=== PATIENT | female | born 1995 | race African-American/Black ===

== ENCOUNTER 2023-05-30 11:38 | Outpatient (CLI) | payer OTHER ==
[2023-05-30 18:11] LABS: HCT - HEMATOCRIT 35.6 % (37.0-47.0); HGB - HEMOGLOBIN 11.6 g/dL (12.0-16.0); MEAN CORPUSCULAR HEMOGLOBIN 30.2 pg (27.0-31.0); MEAN CORPUSCULAR HGB CONC 32.6 g/dL (32.0-36.0); MEAN CORPUSCULAR VOLUME 92.7 fL (81.0-99.0); MEAN PLATELET VOLUME 9.8 fL (7.9-10.8); RED BLOOD COUNT 3.84 10^6/uL (4.20-5.40); WHITE BLOOD COUNT 7.1 x10^3/uL (4.8-10.8)
== END 2023-05-30 11:39 | disposition home or self-care (01) ==
LOC: LAB.N 11:38
PROVIDERS: ATTEND Nurse Practitioner Obstetrics & Gynecology
DX: Z36.9 Encounter for antenatal screening, unspecified (principal)
CPT/HCPCS: 36415; 82950; 85027

== ENCOUNTER 2023-08-05 04:07 | Inpatient (IN) | payer OTHER ==
[2023-08-05 04:41] LABS: RUPTURE OF MEMBRANES PLUS POSITIVE (NEGATIVE)
[2023-08-05] MEDS ORDERED: NIFEdipine 10 MG CAPSULE PO PRN (04:47)
[2023-08-05] MEDS ORDERED: LABETALOL 20 MG/4 ML SYRINGE IVP PRN ×3 (04:47)
[2023-08-05] MEDS ORDERED: CARBOPROST TROMETHAMINE 250 MCG/ML AMP IM PRN (04:47)
[2023-08-05] MEDS ORDERED: miSOPROStoL 200 MCG TABLET BC PRN (04:47)
[2023-08-05] MEDS ORDERED: SODIUM CHLORIDE FLUSH 0.9% 10 ML SYRINGE IVP PRN ×2 (04:47→19:09)
[2023-08-05] MEDS ORDERED: miSOPROStoL 200 MCG TABLET PR PRN (04:47)
[2023-08-05] MEDS ORDERED: TRANEXAMIC ACID IN NACL 1,000 MG/100 ML BAG IV PRN (04:47)
[2023-08-05] MEDS ORDERED: OXYTOCIN/SODIUM CHLORIDE 500 ML IV PRN ×2 (04:47→19:09)
[2023-08-05] MEDS ORDERED: OXYTOCIN 10 UNIT/ML VIAL IM PRN (04:47)
[2023-08-05] MEDS ORDERED: METHYLERGONOVINE 0.2 MG/ML VIAL IM PRN (04:47)
[2023-08-05] MEDS ORDERED: LACTATED RINGERS 1,000 ML IV PRN (04:47)
[2023-08-05] MEDS ORDERED: hydrALAZINE INJ 20 MG/ML VIAL IVP PRN ×2 (04:47)
[2023-08-05] MEDS ORDERED: TERBUTALINE 1 MG/ML VIAL SUBQ PRN (04:47)
[2023-08-05] MEDS ORDERED: lidocaine 1% 20 ML MDV ID PRN (04:47)
[2023-08-05] MEDS ORDERED: SODIUM CHLORIDE FLUSH 0.9% 10 ML SYRINGE IVP SCH (05:00)
[2023-08-05] MEDS: miSOPROStoL 100 MCG TABLET BC SCH (06:28)
[2023-08-05 06:30] LABS: BASOPHILS % (AUTO) 0.4 %; EOSINOPHILS # (AUTO) 0.1 10^3/uL (0.0-0.7); LYMPHOCYTES # (AUTO) 1.8 10^3/uL (1.5-3.5); LYMPHOCYTES % (AUTO) 22.1 %; MEAN CORPUSCULAR HEMOGLOBIN 29.4 pg (27.0-31.0); MEAN CORPUSCULAR HGB CONC 32.5 g/dL (32.0-36.0); MEAN CORPUSCULAR VOLUME 90.5 fL (81.0-99.0); MEAN PLATELET VOLUME 9.5 fL (7.9-10.8); MONOCYTES # (AUTO) 0.5 10^3/uL (0.0-1.0); MONOCYTES % (AUTO) 6.5 %; NEUTROPHILS # (AUTO) 5.5 10^3/uL (1.5-6.6); NEUTROPHILS % (AUTO) 68.9 %; PLT - PLATELET COUNT 192 10^3/uL (130-450); RED BLOOD COUNT 4.42 10^6/uL (4.20-5.40); RED CELL DISTRIBUTION WIDTH 13.9 % (12.0-15.0)
--- NOTE | 2023-08-05 10:57 | HISTORY & PHYSICAL EXAMINATION ---
Admit History - Visit Reason Visit Reason: Membranes rupture - : 1 Parity: 0 Premature: 0 Ectopic: 0 : 0 Care: positive: [facility] Risk/History: positive: None Complications This : positive: None Smoking Status: Never smoker - Mother's Labs Mother's Blood Type: positive: O Mother's RH: positive: Positive GBS: positive: Other Rubella Status: positive: Immune - HPI Diagnosis/Indication for NST: Other Current EDU 09/01/23 Gestation 36 Weeks and 1 Days 1 Vital Signs Temperature 98.7 C H 08/05/23 04:42 Temperature 36.1 C L 08/05/23 05:08 Heart Rate 77 08/05/23 05:08 Respiratory Rate 24 08/05/23 05:08 Blood Pressure 122/77 08/05/23 05:08 O2 Saturation If not protocol: Oxygen Flow, liters/minute - NST Procedure FHR baseline 140s, + accels, no decels Contractions palpate mild every 2-4 minutes with soft resting tone Meds/Allgy - Allergies Allergies/Adverse Reactions: Allergies Allergy/AdvReac Type Severity Reaction Status Date / Time Latex, Natural Rubber AdvReac Itching Verified 08/05/23 05:02 Review of Systems - Constitutional Constitutional: denies: Fatigue, Fever, Chills, Malaise - Eyes Eyes: denies: Blurred vision, Spots in vision, Dipolpia - Cardiovascular Cariovascular: denies: Irregular heart rate, Palpitations, Chest pain, Edema - Respiratory Respiratory: denies: Cough, Wheezing, SOB at rest - Gastrointestinal Gastrointestinal: denies: Abdominal pain, Constipation, Diarrhea, Nausea, Vomiting - Genitourinary Genitourinary: denies: Dysuria, Frequency - Integumentary Integumentary: denies: Rash, Pruritis - Neurological Neurological: denies: Headache - Psychiatric Psychiatric: denies: Depression, Anxiety - Hematologic/Lymphatic Hematologic/Lymphatic: denies: Anemia - All Other Systems All Other Systems: reports: Reviewed and negative Physical - Abdominal Exam Vital Signs: Temp Pulse Resp BP Pulse Ox O2 Flow Rate 36.1 C L 77 24 122/77 08/05/23 05:08 08/05/23 05:08 08/05/23 05:08 02/25/24 05:08 Contraction Frequency (min/apart): 2-4 Contraction Intensity: positive: Mild Uterine Resting Tone: positive: Soft - Monitoring Heart Rate Baseline: 140 Strip Review: positive: Category I - Presentation Presentation: positive: Vertex - Vaginal Exam Membranes: positive: Membranes ruptured Dilation (in cm): 1 Effacement (%): 20 Station: positive: -3 Cervical Position: positive: Posterior - Speculum Exam Speculum Exam Performed: positive: No Findings: positive: Gross leak, Other Plan for Labor - Plan For Labor I expect patient to be DC'd or transferred within 96 hours.: Yes Plan for Labor: Kelly is a 28yo @ 36.1wks gestation by 9.3wk U/S who presents to [facility] with c/o vaginal leakage of clear fluid that started at 0200 this morning. She denies vaginal bleeding and reports +FM. Upon arrival a ROM+ was collected and returned positive. She has continued to leak clear fluid. Her GBS status is unknown at this time and a stat swab was collected. She will be treated per ACOG recommendations for GBS unknown until swab returns negative. She has been a patient of [facility] since her transfer of care from [place], [place] at 23wks gestation. She has had an uncomplicated and has received consistent care for the duration of her . She will be admitted to [facility] for induction of labor secondary to PPROM. She is supported by her Chris today. 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 SAB x0. Las pap 07/2020 WNL, no hx abnormal. Denies history of gonorrhea, chlamydia, genital herpes, oral herpes or any other STI. Sexual partner does NOT have HSV (oral or genital). Medical Hx: none Surgical Hx: wisdom teeth at age 20 Social Hx: Monogamous with male partner Stopped drinking alcohol due to . Denies current use of tobacco, marijuana or other recreational drugs. Reports that she is safe in current relationship. Family Hx: Diabetes - PGM; Cancer- PGF, MGF. Denies family history of congenital anomalies, Cystic Fibrosis or chromosomal abnormalities. Allergies: NKDA; Latex allergy Medications: PNV course: O positive, antibody negative Rubella immune, varicella - unknown Hep b non-reactive, hep c non-reactive HIV non-reactive, RPR non-reactive Initial U/S @ 9.3wks dates Genetic screening - negative FAS WNL. Posterior placenta, no previa. Size c/w dating (EFW 53%tile). 3VC. Glucola 127 GBS unkown Physical exam: Normocephalic, atraumatic Heart RRR w/o M/G/R Lungs CTAB Abdomen gravid, soft, nontender EFW 3000g FHR baseline 140s, moderate variability, + accels, no decels Contractions palpate mild every 2-4 minutes with soft resting tone SVE 20/-3, posterior. Vertex. Grossly ruptured membranes. ROM+ POSITIVE Bilateral LE's no edema Mood is good Assessment: 28yo @ 36.1wks gestation by 9.3wk U/S PPROM FHR Category I GBS unknown Plan: Admit to [facility] for cervical ripening. 50mcg BC misoprostol q 4 hrs for cervical ripening. Continuous monitoring. Initiate Ampicillin for GBS prophylaxis per protocol. Jacuzzi PRN. Nitrous oxide PRN. Epidural per pt request. Anticipate .
[2023-08-05] MEDS: fentaNYL 100 MCG/2 ML VIAL IVP PRN (13:37)
[2023-08-05] MEDS: LACTATED RINGERS 500 ML IV ONE (14:10)
[2023-08-05] MEDS ORDERED: ROPIVACAINE 0.2% 200 MG/100 ML BAG EP ONE (14:20)
[2023-08-05] MEDS: AMPICILLIN 2 GM in SODIUM CHLORIDE 0.9% MINIBAG 100 ML IV ONE (14:49)
[2023-08-05] MEDS ORDERED: NALBUPHINE 10 MG/ML AMP IVP PRN ×2 (14:51→15:50)
[2023-08-05] MEDS ORDERED: ROPIVACAINE 0.2% 200 MG/100 ML BAG EP PRN (14:51)
[2023-08-05] MEDS ORDERED: ePHEDrine 50 MG/ML VIAL IVP PRN ×3 (14:51→15:50)
[2023-08-05] MEDS ORDERED: METOCLOPRAMIDE 10 MG/2 ML VIAL IVP PRN ×3 (14:51→15:50)
[2023-08-05] MEDS ORDERED: ONDANSETRON 4 MG/2 ML VIAL IVP PRN ×3 (14:51→15:50)
[2023-08-05] MEDS ORDERED: diphenhydrAMINE INJ 50 MG/ML VIAL IVP PRN ×2 (14:51→15:50)
[2023-08-05] MEDS ORDERED: NALOXONE 0.4 MG/ML VIAL IVP PRN ×3 (14:51→15:50)
--- NOTE | 2023-08-05 14:56 | ANESTHESIA ---
Pre-Anesthesia VS, & Labs - Diagnosis term labor,IUP - Procedure epidural for Vital Signs: Temp Pulse Resp BP Pulse Ox O2 Flow Rate 36.1 C L 77 24 122/77 08/05/23 05:08 08/05/23 05:08 08/05/23 05:08 08/05/23 05:08 Height: 5 ft 3 in Weight (kg): 73.028 kg Body Mass Index: 28.5 BMI Classification: Overweight - NPO Last Fluid Intake: t/o morning,fluids - Is Patient ?: Yes - Lab Results Current Lab Results: Laboratory Tests 08/05/23 09:00: Blood Type Recheck O POSITIVE 08/05/23 06:21: WBC 8.0, RBC 4.42, Hgb 13.0, Hct 40.0, MCV 90.5, MCH 29.4, MCHC 32.5, RDW 13.9, Plt Count 192, MPV 9.5, Neut # (Auto) 5.5, Lymph # (Auto) 1.8, [place] # (Auto) 0.5, Eos # (Auto) 0.1, Baso # (Auto) 0.0, Absolute Nucleated RBC 0.00, Nucleated RBC % 0.0 08/05/23 06:21: Blood Type O POSITIVE, Antibody Screen NEGATIVE Lab results reviewed: Yes Fish Bones: 08/05/23 06:21 Home Medications and Allergies Active Medications Carboprost Tromethamine (Carboprost Tromethamine 250 Mcg/Ml Amp) 250 mcg IM .ONCE PRN PRN Reason: Hemorrhage Diphenhydramine HCl (Diphenhydramine Inj 50 Mg/Ml Vial) 12.5 - 25 mg IVP Q6HR PRN PRN Reason: ITCHING Ephedrine Sulfate (Ephedrine 50 Mg/Ml Vial) 5 mg IVP Q5M PRN PRN Reason: For SBP<100;give until SBP>100 Fentanyl (Fentanyl 100 Mcg/2 Ml Vial) 50 mcg IVP Q1H PRN PRN Reason: Severe Pain (score 7-10) Last Admin: 08/05/23 13:37 Dose: 50 mcg Hydralazine HCl (Hydralazine Inj 20 Mg/Ml Vial) 5 - 10 mg IVP Q20M PRN; Protocol PRN Reason: SBP> or= 160 OR DBP> or= 110 Hydralazine HCl (Hydralazine Inj 20 Mg/Ml Vial) 10 mg IVP .ONCE PRN; Protocol PRN Reason: SBP> or= 160 OR DBP> or= 110 Lactated Ringer's (Lr) 500 mls @ 999 mls/hr IV PRN PRN PRN Reason: NEEDED PER PROVIDER ORDERS Oxytocin/Sodium Chloride (Pitocin/Sodium Chloride) 500 mls @ 999 mls/hr IV PRN PRN; Protocol PRN Reason: POST- HEMORR PREVENTION Tranexamic Acid (Tranexamic 1,000 Mg/100ml-Nacl) 1,000 mg in 100 mls @ 600 mls/hr IV Q30M PRN PRN Reason: EBL >1200mL and within 3hr Ampicillin Sodium 2 gm/ Sodium (Chloride) 100 mls @ 100 mls/hr IV ONCE ONE Stop: 08/05/23 15:36 Last Admin: 08/05/23 14:49 Dose: 100 mls/hr Ampicillin Sodium 1 gm/ Sodium (Chloride) 100 mls @ 200 mls/hr IV Q4H PETE Lactated Ringer's (Lr) 500 mls @ 999 mls/hr IV ONCE ONE Stop: 08/05/23 15:21 Ropivacaine (Naropin 0.2%) 200 mg in 100 mls @ 0 mls/hr EP PRN PRN; Protocol PRN Reason: PAIN Labetalol HCl (Labetalol 20 Mg/4 Ml Syringe) 20 - 80 mg IVP Q10M PRN; Protocol PRN Reason: SBP> or= 160 OR DBP> or= 110 Labetalol HCl (Labetalol 20 Mg/4 Ml Syringe) 20 mg IVP .ONCE PRN; Protocol PRN Reason: SBP> or= 160 OR DBP> or= 110 Labetalol HCl (Labetalol 20 Mg/4 Ml Syringe) 20 - 40 mg IVP Q10M PRN; Protocol PRN Reason: SBP> or= 160 OR DBP> or= 110 Lidocaine HCl (Lidocaine 1% 20 Ml Mdv) 20 ml ID .ONCE PRN PRN Reason: PERINEAL REPAIR Stop: 08/08/23 04:47 Methylergonovine Maleate (Methylergonovine 0.2 Mg/Ml Vial) 0.2 mg IM .ONCE PRN PRN Reason: Hemorrhage Metoclopramide HCl (Metoclopramide 10 Mg/2 Ml Vial) 10 mg IVP Q6HR PRN PRN Reason: Nausea / Vomiting Misoprostol (Misoprostol 200 Mcg Tablet) 600 mcg BC .ONCE PRN PRN Reason: Hemorrhage Misoprostol (Misoprostol 200 Mcg Tablet) 800 mcg UT .ONCE PRN PRN Reason: Hemorrhage Misoprostol (Misoprostol 100 Mcg Tablet) 50 mcg BC Q4H PETE Last Admin: 08/05/23 10:35 Dose: 50 mcg Nalbuphine HCl (Nalbuphine 10 Mg/Ml Amp) 2.5 - 5 mg IVP Q4H PRN PRN Reason: ITCHING Naloxone HCl (Naloxone 0.4 Mg/Ml Vial) 0.1 mg IVP Q2M PRN PRN Reason: RR<8 Nifedipine (Nifedipine 10 Mg Capsule) 10 - 20 mg PO Q20M PRN; Protocol PRN Reason: SBP> or= 160 OR DBP> or= 110 Ondansetron HCl (Ondansetron 4 Mg/2 Ml Vial) 4 mg IVP Q6HR PRN PRN Reason: Nausea / Vomiting Oxytocin (Oxytocin 10 Unit/Ml Vial) 10 unit IM .ONCE PRN PRN Reason: Step One if no IV access. Sodium Chloride (Sodium Chloride Flush 0.9% 10 Ml Syringe) 10 ml IVP PRN PRN PRN Reason: NEEDED PER PROVIDER ORDERS Sodium Chloride (Sodium Chloride Flush 0.9% 10 Ml Syringe) 10 ml IVP Q8H PETE Terbutaline Sulfate (Terbutaline 1 Mg/Ml Vial) 0.25 mg SUBQ .ONCE PRN PRN Reason: Tachystole Allergies/Adverse Reactions: Allergies Allergy/AdvReac Type Severity Reaction Status Date / Time Latex, Natural Rubber AdvReac Itching Verified 08/05/23 05:02 Anes History & Medical History - Anesthetic History Anesthesia Complications: reports: No previous complications Family history of Anesthesia Complications: Denies Family history of Malignant Hyperthermia: Denies - Medical History Smoking Status: Never smoker - Surgical History Other Past Surgical History: wisdom teeth extraction - Obstetrical History : 1 Parity: 0 Events: reports: None Complications: reports: None Exam General: Alert Dental: WNL Neck Mobility: Normal Respiratory: No respiratory distress Cardiovascular: Regular rate Neurological: Normal speech Mental/Cognitive Status: Alert/Oriented X3, Normal for patient Cognitive Status: Within normal limits Plan Anesthesia Type: Epidural Consent for Procedure(s) Verified and Reviewed: Yes Code Status: Attempt Resuscitation ASA classification: 2-Mild systemic disease Is this case an emergency?: No
[2023-08-05] MEDS ORDERED: ceFAZolin 2 GM VIAL ONE (15:09)
[2023-08-05] MEDS ORDERED: fentaNYL 100 MCG/2 ML VIAL ONE (15:09)
[2023-08-05] MEDS ORDERED: SODIUM CHLORIDE 0.9% 10 ML VIAL IVP ONE ×2 (15:12→15:21)
[2023-08-05] MEDS ORDERED: MORPHINE PF 5 MG/10 ML VIAL ONE (15:12)
[2023-08-05] MEDS ORDERED: OXYTOCIN 10 UNIT/ML VIAL ONE (15:12)
[2023-08-05] MEDS ORDERED: OXYTOCIN/SODIUM CHLORIDE 500 ML IV ONE (15:17)
[2023-08-05] MEDS ORDERED: ePHEDrine 50 MG/ML VIAL IVP ONE (15:20)
[2023-08-05] MEDS ORDERED: PHENYLEPHRINE HCL 0.5 MG/5 ML AMPULE ONE (15:21)
[2023-08-05] MEDS ORDERED: fentaNYL 100 MCG/2 ML VIAL IT ONE (15:27)
[2023-08-05] MEDS ORDERED: MORPHINE PF 5 MG/10 ML VIAL IT ONE (15:27)
[2023-08-05] MEDS ORDERED: HYDROmorphone 0.5 MG/0.5 ML SYRINGE IVP PRN (15:50)
[2023-08-05] MEDS ORDERED: MORPHINE 2 MG/ML CARPUJECT IVP PRN (15:50)
[2023-08-05] MEDS ORDERED: ATROPINE ABBOJECT 1 MG/10 ML SYRINGE IVP PRN (15:50)
[2023-08-05] MEDS ORDERED: fentaNYL 100 MCG/2 ML VIAL IVP PRN (15:50)
[2023-08-05] MEDS ORDERED: KETOROLAC 30 MG/ML VIAL ONE (15:53)
[2023-08-05] MEDS ORDERED: LACTATED RINGERS 1,000 ML IV SCH ×2 (16:00→20:00)
--- NOTE | 2023-08-05 17:10 | OPERATIVE REPORT ---
Operative Report - General Admit Date: 08/05/23 Procedure Date: 08/05/23 Planned Procedure: Low transverse section Pre-Op Diagnosis: malpresentation Procedure Performed: Low transverse section Post Op Diagnosis: malpresentation - Procedure Note Primary Surgeon: Edison Miramontes Secondary Surgeon: KAILEY Terrazas Anesthesia Provider: John Vasquez CRNA Pathology: None IV Fluids (mL): 1,200 Estimated Blood Loss (mL): 600 Urine Output (mL): 300 Complications: None - Other Other Information/Narrative: Pre-Op diagnoses: 36 weeks gestation Prelabor rupture membranes presentation Postop diagnosis Same Delivery of live veras Status post spontaneous vaginal delivery section was recommended. Risks, benefits and alternatives were discussed including but not limited to infection, bleeding that may require blood products or hysterectomy for life saving measures, injury to surrounding organs including but not limited to bowel, bladder, ureters, tubes and ovaries and/or the baby. Should injury occur it could require longer/additional surgery to repair. The patient stated understanding and desired to proceed. All questions were answered posed by patient. Prior to being taken to the OR, 2 grams of cefazolin IV preoperatively and 500 mg azithromycin was given preoperatively perioperatively administered. The patient was taken to the operating room where regional anesthesia was found to be adequate. She was then prepared and draped in the usual sterile fashion in t he dorsal supine position with a leftward tilt displacing the uterus. Kunz was draining to gravity. SCDs were on bilateral lower extremities. Vaginal prep was prepared with iodine. A pfannenstiel skin incision was then made with the scalpel and carried through to the underlying layer of fascia. The fascia was incised in the midline and the incision extended laterally with the Ta scissors. The superior aspect of the facial incision was then grasped with the Charis clamps, elevated and the underlying rectus muscles dissected off sharply. Attention was then turned to the inferior aspect of this incision which in a similar fashion was grasped, elevated with the Charis clamps and the rectus muscle dissected off sharply. The rectus muscles were in the midline. The peritoneum identified, grasped with the pick-ups and entered sharply with the Metzenbaum scissors. The peritoneal incision was then extended superiorly and inferiorly with good visualization of the bladder. The bladder blade was inserted. The vesicouterine peritoneum was identified, grasped with the pick-ups, and entered sharply with Metzenbaum scissors. This incision was then extended laterally and the bladder flap created digitally. The bladder blade was reinserted. The lower uterine segment was identified and incised in a transverse fashion with the scalpel. The uterine incision was then extended bluntly laterally.The bladder blade was removed. The fetus was in breech presentation. The buttocks were easily removed from the pelvis. After delivery of the buttocks, the legs were fully extended toward the head and delivered quickly without assistance. The left, anterior shoulder was then medially rot flexed, and extended through the hysterotomy. Ated, fetus was then rotated with right shou lder anterior and the similar procedure was done. At that point the head delivered spontaneously. The infants mouth and nose were bulb suctioned, stimulated and warmed with a blanket. After delayed cord clamping, the umbilical cord was clamped times two and cut. The infant was handed to the pediatric team. The placenta was removed with gentle traction. Oxytocin was added to the IV fluid and was allowed to run freely. The uterus was exteriorized and cleared of all clots and debris. The uterine incision was inspected and found to be without any extensions and was repaired with 0 Vicryl in a running, locked fashion. A second imbricating layer was performed. 2 additional [id number] stitches were used to achieve hemostasis. Upon inspection, the repaired hysterotomy was found to be hemostatic. The uterus was firm and returned to the abdomen. The gutters were cleared of all clots and debris. The peritoneum was closed with a running suture of 2-0 Vicryl. The muscle layer was examined and found to be hemostatic. The fascia was reapproximated with 0 Vicryl in a running fashion. The skin was closed in a subcuticular fashion with 4-0 Monocryl. The patient tolerated the procedure well. Sponge, lap and needle counts were correct times three. The patient was taken to the recovery room in stable condition. I appreciate the assistance of Sandra Seo during this procedure, and the assistance in retraction, visualization, dissection, and overall assistance during the case were instrumental to the patient's wellbeing. APGARs: 8/9 weight: Pending
[2023-08-05] MEDS: AZITHROMYCIN INJ 500 MG in SODIUM CHLORIDE 0.9% 250 ML IV ONE (18:04)
[2023-08-05] MEDS: ceFAZolin (2G) 2 GM in SODIUM CHLORIDE 0.9% MINIBAG 100 ML IV ONE (18:04)
[2023-08-05] MEDS ORDERED: ONDANSETRON ODT 4 MG TABLET TL PRN (19:09)
--- NOTE | 2023-08-05 19:14 | ANESTHESIA POST OP EVALUATION ---
Anesthesia Post Eval - Post Anesthesia Eval Vitals: Last Vital Signs Temp 36.7 C 08/05/23 18:00 Pulse 81 08/05/23 18:30 Resp 14 08/05/23 18:30 BP 112/61 08/05/23 18:30 Pulse Ox O2 Flow Rate CV Function Including HR & BP: Stable Pain Control: Satisfactory Nausea & Vomiting: Negative Mental Status: Baseline Respiratory Status: Airway Patent Hydration Status: Satisfactory Anesthesia Complications: None
[2023-08-05] MEDS: AMPICILLIN 1 GM in SODIUM CHLORIDE 0.9% MINIBAG 100 ML IV SCH (19:40)
[2023-08-05] MEDS: KETOROLAC 30 MG/ML VIAL IVP SCH (22:46)
[2023-08-05] MEDS: ACETAMINOPHEN 500 MG TABLET PO SCH (22:47)
[2023-08-06] MEDS ORDERED: SODIUM CHLORIDE FLUSH 0.9% 10 ML SYRINGE IVP SCH (01:00)
[2023-08-06 06:33] LABS: BASOPHILS % (AUTO) 0.3 %; EOSINOPHILS # (AUTO) 0.1 10^3/uL (0.0-0.7); EOSINOPHILS % (AUTO) 0.6 %; HCT - HEMATOCRIT 34.3 % (37.0-47.0); HGB - HEMOGLOBIN 11.3 g/dL (12.0-16.0); LYMPHOCYTES # (AUTO) 1.7 10^3/uL (1.5-3.5); LYMPHOCYTES % (AUTO) 13.8 %; MEAN CORPUSCULAR HEMOGLOBIN 30.3 pg (27.0-31.0); MEAN CORPUSCULAR HGB CONC 32.9 g/dL (32.0-36.0); MEAN PLATELET VOLUME 9.2 fL (7.9-10.8); MONOCYTES # (AUTO) 0.7 10^3/uL (0.0-1.0); NEUTROPHILS # (AUTO) 9.6 10^3/uL (1.5-6.6); NEUTROPHILS % (AUTO) 78.6 %; PLT - PLATELET COUNT 158 10^3/uL (130-450); RED BLOOD COUNT 3.73 10^6/uL (4.20-5.40); RED CELL DISTRIBUTION WIDTH 14.1 % (12.0-15.0); WHITE BLOOD COUNT 12.2 x10^3/uL (4.8-10.8)
--- NOTE | 2023-08-06 07:03 | PROVIDER PROGRESS NOTE ---
Subjective - Subjective Subjective: Subjective Patient reports she is doing well. Lochia appropriate. Denies heavy bleeding. Ambulating without difficulty. Pelvic and abdominal pain well-controlled. Tolerating oral intake. Diet: Regular. Catheter removed, has not voided. Passing flatus. Denies BM. Patient is bonding with baby in room Breast feeding going well. Denies feeling lightheaded, dizzy or excessively fatigued. Objective General: Alert, oriented, no apparent distress. Cardiovascular: Regular rate. Regular rhythm. Lungs: No increased work of breathing. Abdomen: Uterus firm. Below umbilicus. No guarding or rebound. Extremities: No pain on palpation. No cords palpated. Distal pulses intact. Incision: Bandage in place. Assessment and Plan day 1. -Routine care -Anticipate discharge in 1 to 2 days Status post primary low-transverse section -Monitor for signs of endometritis. GBS positive, inadequate treatment. -Received cefazolin and azithromycin as well as vaginal prep for surgery. Objective - Vital Signs/Intake & Output Intake & Output: Intake & Output 08/03/23 08/04/23 08/05/23 08/06/23 23:59 23:59 23:59 23:59 Intake Total 2049 1750 Output Total 2100 Balance 2050 -350 - Lab Results Fish Bones: 08/06/23 06:30 Other Labs: Lab Results x24hrs 08/06/23 08/05/23 08/05/23 Range/Units 06:30 09:00 06:21 WBC 12.2 H (4.8-10.8) x10^3/uL RBC 3.73 L (4.20-5.40) 10^6/uL Hgb 11.3 L (12.0-16.0) g/dL Hct 34.3 L (37.0-47.0) % MCV 92.0 (81.0-99.0) fL MCH 30.3 (27.0-31.0) pg MCHC 32.9 (32.0-36.0) g/dL RDW 14.1 (12.0-15.0) % Plt Count 158 (130-450) 10^3/uL MPV 9.2 (7.9-10.8) fL Neut # (Auto) 9.6 H (1.5-6.6) 10^3/uL Lymph # (Auto) 1.7 (1.5-3.5) 10^3/uL [place] # (Auto) 0.7 (0.0-1.0) 10^3/uL Eos # (Auto) 0.1 (0.0-0.7) 10^3/uL Baso # (Auto) 0.0 (0.0-0.1) 10^3/uL Absolute Nucleated RBC 0.00 x10^3/uL Nucleated RBC % 0.0 /100WBC Group B Strep (PCR) (NEGATIVE) Blood Type O POSITIVE Blood Type Recheck O POSITIVE Antibody Screen NEGATIVE 08/05/23 Range/Units 04:30 WBC (4.8-10.8) x10^3/uL RBC (4.20-5.40) 10^6/uL Hgb (12.0-16.0) g/dL Hct (37.0-47.0) % MCV (81.0-99.0) fL MCH (27.0-31.0) pg MCHC (32.0-36.0) g/dL RDW (12.0-15.0) % Plt Count (130-450) 10^3/uL MPV (7.9-10.8) fL Neut # (Auto) (1.5-6.6) 10^3/uL Lymph # (Auto) (1.5-3.5) 10^3/uL [place] # (Auto) (0.0-1.0) 10^3/uL Eos # (Auto) (0.0-0.7) 10^3/uL Baso # (Auto) (0.0-0.1) 10^3/uL Absolute Nucleated RBC x10^3/uL Nucleated RBC % /100WBC Group B Strep (PCR) NEGATIVE (NEGATIVE) Blood Type Blood Type Recheck Antibody Screen
[2023-08-06] MEDS: SIMETHICONE CHEW 80 MG TABLET PO PRN (08:28)
[2023-08-06] MEDS: DOCUSATE SODIUM 100 MG CAPSULE PO SCH (08:28)
[2023-08-06] MEDS: oxyCODONE 5 MG TABLET PO PRN (08:29)
--- NOTE | 2023-08-06 10:46 | PROVIDER PROGRESS NOTE ---
Labor Progress Note - Uterine Monitoring Uterine Monitoring Mode: positive: External toco Contraction Frequency (min/apart): 2-4 Contraction Intensity: positive: Strong Uterine Resting Tone: positive: Soft - Monitoring Monitor Mode: positive: External ultrasound Heart Rate Baseline: 140 Heart Rate Variability: positive: Moderate (6-25 bmp) Accelerations: positive: Present, 15x15 Decelerations: positive: None Strip Review: positive: Category I - Vaginal Exam Dilation (in cm): 8 Effacement (%): 100 Station: 0 - Labor Progress Note Labor Progress Note/Additional Text: S: Patient crying and breathing through contractions in hands and knees position. She requests an epidural for pain management. She has used nitrous oxide with improved her pain and fentanyl which did not improve her pain. She is feeling spontaneous urge to push with contractions and states she is not able to avoid pushing as her body is doing it spontaneously. I was called to the bedside to evaluate the patient for rapid cervical dilation. SVE 8/100/0 with unsure presentation and atypical examination with concern for breech presentation vs face presentation. A bedside ultrasound was requested. No head noted in uterine fundus and secondary to patient level of pain and request for epidural placement the ultrasound was discontinued so epidural could be placed. on call pharmacy technician physician notified and requested to present secondary to concern for abnormal presentation. Epidural was promptly placed and physician present at the bedside and diagnosed breech presentation. Care was handed to firebrick layer for primary delivery secondary to breech presentation. (See physician documentation.)
--- NOTE | 2023-08-06 10:48 | PROCEDURE REPORT ---
Hospitalist Procedure Note - Procedure Note Procedure Note: VARNISH THINNER DOCUMENTATION: I assisted the OB consumer services advisor in the section for this patient. My responsibilities included retracting and suctions, providing fundal pressure during delivery and following with suture during closure. Please see the OB's note for details of the surgery
[2023-08-06] MEDS: IBUPROFEN 600 MG TABLET PO SCH (19:31)
--- NOTE | 2023-08-07 09:39 | Discharge Plan ---
Discharge Plan Problem Reviewed?: Yes Disposition: Home, Self Care Condition: Good Shower Restrictions: No Driving Restrictions: Yes Instruction Topics: Depression , C Section Dc No Smoking: If you smoke, Please STOP! Call for help. Follow-up with: Edison Miramontes MD [Provider Admit Priv/Credential] -
--- NOTE | 2023-08-07 09:43 | DISCHARGE SUMMARY ---
Discharge Summary Admit Date: 08/05/23 Discharge Date: 08/07/23 Discharging Provider: Edison Miramontes MD Condition at Discharge: Good Discharge Disposition: 01 Home, Self Care - DIAGNOSES Admission Diagnoses: 36 weeks gestation rupture membranes labor GBS positive Discharge Diagnoses with Status of Each Condition: Same Breech presentation Status post primary low-transverse section - HPI History of Present Illness: Subjective Patient reports she is doing well. Lochia appropriate. Denies heavy bleeding. Ambulating. Pelvic and abdominal pain well-controlled. Tolerating oral intake. Diet: Regular. Voiding without difficulty. Passing flatus. Denies BM. Patient is bonding with baby in room Breast feeding going well. Denies feeling lightheaded, dizzy or excessively fatigued. Objective General: Alert, oriented, no apparent distress. Cardiovascular: Regular rate. Regular rhythm. Lungs: No increased work of breathing. Abdomen: Uterus firm. Below umbilicus. No guarding or rebound. Extremities: No pain on palpation. No cords palpated. Distal pulses intact. Incision: Clean, dry, and intact. - HOSPITAL COURSE Hospital Course: Patient presented at 36 weeks gestation with rupture of membranes. I was called by her string top sealer who was concerned about malpresentation. I arrived, performed an ultrasound and checked and baby was in breech presen tation, so section was recommended. was unremarkable and delivery of a healthy female was done. course was unremarkable and she and her were discharged on day 2. weight: 5 pounds 10 ounces - ALLERGIES Allergies/Adverse Reactions: Allergies Allergy/AdvReac Type Severity Reaction Status Date / Time Latex, Natural Rubber AdvReac Itching Verified 08/05/23 05:02 - MEDICATIONS Home Medications: Ambulatory Orders Medication Instructions Recorded Confirmed Acetaminophen [Tylenol] 1,000 mg PO Q8H tab 08/07/23 Docusate Sodium 100Mg Capsule 100 - 200 mg PO BID PRN #60 cap 08/07/23 [Colace 100Mg Capsule] Docusate Sodium 100Mg Capsule 100 mg PO BID cap 08/07/23 [Colace 100Mg Capsule] Ibuprofen [Motrin] 600 mg PO Q6H tab 08/07/23 Ibuprofen [Motrin] 600 mg PO Q6H PRN #30 tab 08/07/23 oxyCODONE [Roxicodone] 5 mg PO Q4H PRN #20 tablet 08/07/23 - LABS Result Diagrams: 08/06/23 06:30 - FOLLOW UP Follow Up: With Edison Miramontes MD at [facility] in 1 week - TIME SPENT Time Spent in Discharge (Minutes): 20
[2023-08-07 10:12] VITALS: BP 115/65; O2SAT 100
--- NOTE | 2023-08-07 13:40 | Labor Flowsheet ---
Labor Flowsheet Datetime Report Generated by CPN: 08/07/2023 13:40 Datetime: 08/07/2023 09:46 VITAL SIGNS NBP Sys/Lani/Mean (mmHg): 115 : 65 : 74 Pulse: 71 LaborFlag: Labor Datetime: 08/06/2023 20:02 Respirations: 18 Temperature (C): 36.8 Temperature Route: Oral Datetime: 08/05/2023 19:34 SpO2 (%): 98 Datetime: 08/05/2023 19:08 Membranes Ruptured Date/Time: 08/05/2023 01:00 Membranes Rupture Method: Spontaneous Amniotic Fluid Color: Clear Amniotic Fluid Amount: Moderate Amniotic Fluid Odor: Normal Datetime: 08/05/2023 15:18 Patient Care Comments: Leave room for OR Datetime: 08/05/2023 15:03 COMMUNICATION Communication: Provider at Bedside Communication Comments: Dr Kulwinder at bedside Datetime: 08/05/2023 14:59 STAGE 2 Pushing: Coached on Pushing Pushing Position: Pushing with Contractions Pushing Progress: Descent with Pushing Datetime: 08/05/2023 14:57 VAGINAL EXAM Dilatation (cm): 10.0 Effacement (%): 100 Station: 1 Exam by: john mays cnm Vaginal Bleeding: Normal Show Cervix, Consistency: Soft Cervix, Position: Anterior Datetime: 08/05/2023 14:45 UTERINE ACTIVITY Monitor Mode: External Frequency (min): 2-5 Quality: Strong Duration (sec): 50-70 Pattern: Normal: <= 5 Contractions in 10 Minutes Resting Tone (Palpate): Relaxed Monitor Interventions for FHR: Ultrasound Adjusted FHR Baseline Rate : 135 Variability: Moderate 6-25 bpm Accelerations: 15X15 Comments: interupted strip Datetime: 08/05/2023 14:43 Epidural Procedure Other: Pump Started Datetime: 08/05/2023 14:42 Patient Position/Activity: High Fowlers Datetime: 08/05/2023 14:37 Epidural Procedure: Loading Dose Datetime: 08/05/2023 14:36 Anesthesia Comments: epidural in Datetime: 08/05/2023 14:30 Monitor Interventions for UA: [place] Adjusted Contraction Comments: unable to assess Datetime: 08/05/2023 14:28 PROCEDURE TIME OUT Procedure Verify: Correct Patient Identity; Correct Side and Site are Marked; Accurate Procedure Co nsent Form; Agreement on Procedure to be Done; Correct Patient Position; Addressed Need to Administer Antibiotics or Fluids for Irrigation; Safety Precautions Based on Patient History or Medication Use ANESTHESIA Anesthesia Plans: Epidural Epidural Positioning: Sitting Datetime: 08/05/2023 14:17 Pain Coping: Requesting Pain Medication or Epidural; Crying Comfort Measures: Breathing/Relaxation; Coaching; Back Rub Given Datetime: 08/05/2023 14:15 ASSESSMENT A Monitor Mode: Telemetry Decelerations: None Category: Category I Oxygen Method: Room Air Datetime: 08/05/2023 14:10 PATIENT CARE IV/Blood Work: IV Bolus Started Datetime: 08/05/2023 14:00 FHR Baseline Changes: No Baseline Change Datetime: 08/05/2023 13:37 PAIN Pain Scale: 8 MEDICATIONS Analgesics/Sedatives: Fentanyl (mcg) @ 50 Datetime: 08/05/2023 13:34 Pain Assessment Comments: Nitrious oxide discontinued. Pt in right lateral with pillow support betw een legs Datetime: 08/05/2023 12:33 Pain Presence: Intermittent Pain Type: Contraction Datetime: 08/05/2023 11:26 I/O Interventions: Up to BR Datetime: 08/05/2023 10:35 Cervical Ripening Agents: Cytotec @ Datetime: 08/05/2023 08:36 Stage of : Labor Vital Sign Comments: BP taken during cxtn Pain Location: Coccyx Datetime: 08/05/2023 06:22 Notification Reason: Labor Status; Uterine Activity; Pain; Other
== END 2023-08-07 13:10 | disposition home or self-care (01) | DRG 788 ==
LOC: WFO 04:07 → FBP 04:10 → WFO 05:02
PROVIDERS: ADMIT Nurse Practitioner Obstetrics & Gynecology; ATTEND Obstetrics & Gynecology
PROC: 10D00Z1 Extraction of Products of Conception, Low, Open Approach (ICD-10-PCS; principal; 2023-08-05 15:30)
DX: O60.14X0 Preterm labor third trimester with preterm delivery third trimester, not applicable or unspecified (principal); O32.1XX0 Maternal care for breech presentation, not applicable or unspecified; O99.824 Streptococcus B carrier state complicating childbirth; Z3A.36 36 weeks gestation of pregnancy; Z37.0 Single live birth; Z80.9 Family history of malignant neoplasm, unspecified; Z83.3 Family history of diabetes mellitus; Z91.040 Latex allergy status
CPT/HCPCS: 36415; 84112; 85025; 86850; 86900; 86901; 87797; 99215; A9270; J2274; J2372; J7120